=== PATIENT | female | born 1995 ===

== ENCOUNTER 2016-09-19 00:16 | Observation (INO) | payer BC, OTHER ==
[~2016-09-19] VITALS: Ht 154.9 cm; Wt 45.0 kg
[2016-09-19] VITALS (7 sets, daily range): BP systolic 92–128; BP diastolic 42–101; PULSE 84–128; TEMP 36.4–37.1; O2SAT 94–100; Ht 154.9 cm; Wt 45.0 kg
[2016-09-19] MEDS ORDERED: LORAZEPAM 2 MG/ML 1 ML VIAL ONE ×2 (00:24→00:49)
[2016-09-19] MEDS ORDERED: HALOPERIDOL LACTATE 5 MG/ML 1 ML VIAL ONE (00:25)
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
[2016-09-19 01:38] LABS: BUN/CREATININE RATIO 18.9 (10-20); CALCIUM 8.9 mg/dl (8.5-10.1); CREATININE 0.74 mg/dl (0.60-1.20); POTASSIUM 3.8 mmol/L (3.5-5.1)
[2016-09-19 01:44] LABS: PREG INTERNAL NEGATIVE QC NEG CLEAR BACKGROUND; PREG INTERNAL POSITIVE QC POS CONTROL LINE
[2016-09-19] MEDS: LORAZEPAM 2 MG/ML 1 ML VIAL IM PRN ×2 (01:56→03:17)
[2016-09-19] MEDS ORDERED: MIDAZOLAM HCL 5 MG/ML 1 ML VIAL IM STA (04:06)
[2016-09-19] MEDS ORDERED: MIDAZOLAM HCL 5 MG/ML 2ML VIAL ONE (04:11)
[2016-09-19] MEDS ORDERED: SODIUM CHLORIDE 0.9% 1000ML 1,000 ML IV STA (04:14)
[2016-09-19] MEDS ORDERED: PROPOFOL IV EMULSION 10 MG/ML 100 ML VIAL IV ONE (04:33)
[2016-09-19] MEDS ORDERED: RAPID SEQUENCE INDUCTION BAG ONE (04:34)
[2016-09-19 04:42] LABS: BASO % 0.2 %; BASO ABS # 0.02 K/uL (0-0.2); COMPLETE YES; EOS % 0.5 %; HEMATOCRIT 40.7 % (37-47); IG% 0.4 %; LYMPH ABS # 3.26 K/uL (1.2-3.4); MEAN CELL VOLUME 88.1 fL (80-100); MEAN CORPUSCULAR HEMOGLOBIN 31.2 pg (25-34); MEAN CORPUSCULAR HGB CONC 35.4 g/dl (32-36); MONO % 5.9 %; PLATELET COUNT 407 K/uL (130-400); RED BLOOD COUNT 4.62 M/uL (4.2-5.4); WHITE BLOOD COUNT 9.59 K/uL (4.8-10.8)
[2016-09-19 05:18] LABS: URINE APPEARANCE CLEAR (CLEAR); URINE BILIRUBIN NEG (NEG); URINE COLOR YELLOW; URINE EPITHELIAL CELL AUTO 0-5 /lpf (0-5); URINE NITRITE NEG (NEG); URINE PH 6.5 (4.5-7.5); URINE SPECIFIC GRAVITY 1.001 (1.000-1.030); UROBILINOGEN NEG (NEG); ZZURINE CULT IF INDIC CATH NO
[2016-09-19 05:19] LABS: MANUAL MICROSCOPIC REQUIRED? NO; REVIEW REQ? NO
[2016-09-19 05:19] LABS: BUN/CREATININE RATIO 15.3 (10-20); CALCIUM 8.8 mg/dl (8.5-10.1); CREATININE 0.76 mg/dl (0.60-1.20); POTASSIUM 3.7 mmol/L (3.5-5.1)
[2016-09-19 05:35] LABS: BENZODIAZEPINE, URINE POS (NEG); COCAINE,URINE NEG (NEG); PHENCYCLIDINE, URINE NEG (NEG)
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
[2016-09-19] MEDS ORDERED: LORAZEPAM 2 MG/ML 1 ML VIAL IV PRN (05:45)
[2016-09-19] MEDS ORDERED: ONDANSETRON INJ 2 MG/ML 2 ML VIAL IV PRN (05:45)
[2016-09-19] MEDS ORDERED: ALUMINUM/MAGNESIUM/SIMETH (MAALOX MAX) 30 ML UDC PO PRN (05:45)
[2016-09-19] MEDS ORDERED: MAGNESIUM HYDROXIDE SUSP 30 ML UDC PO PRN (05:45)
[2016-09-19] MEDS ORDERED: POLYETHYLENE (MIRALAX) 17 GM PACK PO PRN (05:45)
[2016-09-19] MEDS ORDERED: ACETAMINOPHEN 325 MG TAB PO PRN (05:45)
[2016-09-19] MEDS ORDERED: IV FLUIDS COMPLETED PRN (06:00)
[2016-09-19] MEDS ORDERED: LORAZEPAM INJ 1 MG in SYRINGE 0.5 ML IV PRN (06:15)
[2016-09-19] MEDS ORDERED: MULTI-VITAMIN INFUSION INJ 10 ML, THIAMINE HCL INJ 100 MG, FoLIC ACID INJ 1 MG in SODIU... IV ONE (07:30)
[2016-09-19] MEDS ORDERED: D5NSS + 20MEQ KCL 1,000 ML IV SCH (07:30)
--- NOTE | 2016-09-19 11:30 | Discharge Instructions ---
Discharge Instructions Admission Reason for Admission: Alcohol Intoxication Delirium (Bettie Coronado PA-C) Discharge Discharge Diagnosis / Problem: Alcohol intoxication (Bettie Coronado PA-C) Discharge Goals Goal(s): Decrease discomfort, Improve function, Therapeutic intervention (Bettie Coronado PA-C) Activity Recommendations Activity Limitations: resume your previous activity Lifting Limitations: gradually increase as tolerated Exercise/Sports Limitations: gradually increase as tolerated May Resume Sexual Activity: when tolerated Shower/Bathe: no limitations Driving or Machine Use: resume 1 day after discharge . (Bettie Coronado PA-C) Instructions / Follow-Up Instructions / Follow-Up You were admitted to [facility] with alcohol intoxication and diagnosed with the same. During your stay here you were treated with intravenous fluids, minerals, vitamins and medications to calm you down as you were aggressive while intoxicated. Counseling and/or therapy for alcohol use history was encouraged during your admission stay. You denied the need for therapy services. These are available in the [place] area if you decide you need them in the future. Alcoholics Anonymous is located at [address] [place] [address]. Please call DO NOT DRINK ALCOHOL!!! (Bettie Coronado PA-C) Current Hospital Diet Patient's current hospital diet: Regular Diet (Bettie Coronado PA-C) Discharge Diet Recommended Diet: Regular Diet (Bettie Coronado PA-C) Procedures Procedures Performed: None (Bettie Coronado PA-C) Pending Studies Studies pending at discharge: no (Bettie Coronado PA-C) Medical Emergencies . Who to Call and When: Medical Emergencies: If at any time you feel your situation is an emergency, please call 911 immediately. . (Bettie Coronado PA-C) Non-Emergent Contact Non-Emergency issues call your: Primary Care Provider Call Non-Emergent contact if: temperature is above 101.5, your pain is not controlled, your pain is worsening, you have any medication questions . (Bettie Coronado, VINCE) . "Provider Documentation" section prepared by Nilsa Coronado. (Bettie Coronado, VINCE) VTE Core Measure Inpt VTE Proph given/why not?: SCD's (Bettie Coronado, VINCE)
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
[2016-09-19] MEDS ORDERED: BCPILLS PO (13:36)
[2016-09-21 12:03] LABS: HYDROXYETHYLFLURAZEPAM CONF NEGATIVE NG/ML (CUTOFF=50); HYDROXYMIDAZOLAM 167 NG/ML (CUTOFF=50); HYDROXYTRIAZOLAM CONF NEGATIVE NG/ML (CUTOFF=50); TEMAZEPAM CONF NEGATIVE NG/ML (CUTOFF=50)
== END 2016-09-19 14:26 | disposition home or self-care (01) ==
LOC: ENRESERVDT → ENRESERVTM → EDBD 00:16 → C.EDB 00:20 → C.MSICU 05:43 → C.2E 10:13
PROVIDERS: ADMIT Internal Medicine; ATTEND Family Medicine
DX: F10.14 Alcohol abuse with alcohol-induced mood disorder (principal); F10.121 Alcohol abuse with intoxication delirium